=== PATIENT | male | born 1990 | race African-American/Black ===

== ENCOUNTER 2024-07-03 02:31 | Emergency (ER) | payer MEDICAID ==
[~2024-07-03] VITALS: Ht 185.4 cm; Wt 99.7 kg
[2024-07-03 02:46] VITALS: O2SAT 98
[2024-07-03] MEDS: IBUPROFEN 800MG TABLET PO ONE (06:15)
[2024-07-03] MEDS ORDERED: IBUP-2030 PO (07:37)
[2024-07-03 08:12] VITALS: BP 138/80; PULSE 88; RESP 18; TEMP 36.89184; O2SAT 98
== END 2024-07-03 08:13 | disposition home or self-care (01) ==
LOC: ER 02:31
DX: B34.9 Viral infection, unspecified (principal); M54.50 Low back pain, unspecified
CPT/HCPCS: 71045; 72100; 99284